=== PATIENT | female | born 1955 | race Caucasian/White ===

== ENCOUNTER 2024-06-02 20:55 | Emergency (ER) | payer MEDICARE, OTHER ==
[~2024-06-02] VITALS: Ht 165.1 cm; Wt 93.2 kg
[2024-06-02 21:22] VITALS: TEMP 98.2
[2024-06-02 22:38] VITALS: BP 148/80; PULSE 59
== END 2024-06-02 22:38 | disposition home or self-care (01) ==
LOC: COL.ER 20:55
DX: S62.395A Other fracture of fourth metacarpal bone, left hand, initial encounter for closed fracture (principal); S62.397A Other fracture of fifth metacarpal bone, left hand, initial encounter for closed fracture; W01.0XXA Fall on same level from slipping, tripping and stumbling without subsequent striking against object, initial encounter